=== PATIENT | female | born 1955 | race Caucasian/White ===

== ENCOUNTER 2016-06-26 00:20 | Inpatient (IN) | payer BC ==
[~2016-06-26] VITALS: Ht 152.4 cm; Wt 72.0 kg
[2016-06-26 01:00] VITALS: BP 129/65; RESP 18
[2016-06-26] MEDS ORDERED: morphine 10 MG INJ IV PRN (02:00)
[2016-06-26] MEDS ORDERED: ONDANSETRON 4 MG INJ IV PRN (02:00)
[2016-06-26 05:13] LABS: ADD SCAN DIFF NO
[2016-06-26 05:26] LABS: BASOPHILS % 0.2 % (0.0-2.0); EOSINOPHILS % 0.2 % (0.0-7.0); HEMATOCRIT 41.9 % (37.0-47.0); HEMOGLOBIN 13.8 g/dl (12.0-16.0); LYMPHOCYTES # 1.7 10^3/ul (0.8-2.9); LYMPHOCYTES % 17.4 % (15.0-51.0); MEAN CORPUSCULAR HEMOGLOBIN 30.6 pg (29.0-33.0); MEAN CORPUSCULAR HGB CONC 32.9 g/dl (32.0-37.0); MEAN CORPUSCULAR VOLUME 92.9 fl (82.0-101.0); MEAN PLATELET VOLUME 10.3 fl (7.4-10.4); MONOCYTE # 0.6 10^3/ul (0.3-0.9); MONOCYTES % 5.8 % (0.0-11.0); NEUTROPHIL # 7.5 10^3/ul (1.6-7.5); NEUTROPHILS % 76.2 % (39.0-77.0); PLATELET COUNT 214 10^3/UL (140-415); RED BLOOD COUNT 4.51 10^6/ul (4.20-5.40); RED CELL DISTRIBUTION WIDTH 13.2 % (11.5-14.5); WHITE BLOOD COUNT 9.9 10^3/ul (4.8-10.8)
[2016-06-26] MEDS: morphine 2 MG INJ IV PRN ×4 (06:49→21:54)
[2016-06-26 07:38] LABS: POTASSIUM 4.8 mmol/L (3.5-5.1)
[2016-06-26 07:41] LABS: CALCIUM 9.1 mg/dl (8.4-10.2); CREATININE 0.77 mg/dl (0.44-1.00)
[2016-06-26 08:04] VITALS: BP 113/55; RESP 18
[2016-06-26] MEDS ORDERED: ZOC20 PO (12:24)
[2016-06-26] MEDS ORDERED: CHOL400T10 PO (12:24)
[2016-06-26] MEDS ORDERED: LEVO50TA74 PO (12:24)
[2016-06-26] MEDS ORDERED: ALPR0.5T10 PO (12:24)
[2016-06-26] MEDS ORDERED: CALC-277 PO (12:24)
[2016-06-26] MEDS ORDERED: CYCL-319 PO (12:24)
[2016-06-26] MEDS ORDERED: FLUO20CA22 PO (12:24)
[2016-06-26] MEDS ORDERED: DIPH25CA6 PO (12:24)
[2016-06-26] MEDS ORDERED: NAPR275T83 PO (12:24)
--- NOTE | 2016-06-26 13:52 | HP ---
DATE OF ADMISSION: 06/26/2016 CHIEF COMPLAINT: Status post mechanical fall and right hip pain. HISTORY OF PRESENT ILLNESS: The patient is a 60-year-old Syriac female with past medical history positive for hypothyroidism, depression, hyperlipidemia, chronic low back pain. The patient misstep ped on the stairs yesterday and sustained mechanical fall last night and landed on her hip. The pat ye denies any head injury, denies any loss of consciousness. Denies any vomiting or nausea. Grabiel es any chest pain. Denies shortness of breath. Denies any abdominal pain. The patient was brought by paramedics to [facility]. The patient underwent x-ray of the right hip whic h revealed a right hip fracture and patient was transferred to [facility] for higher level of care. The pa dimas complains of right hip pain with movement, currently is pain free at rest. The patient receiv ed morphine. PAST MEDICAL HISTORY: Per HPI. PAST SURGICAL HISTORY: The patient denies having any past surgeries in the back. SOCIAL HISTORY: The patient smokes occasionally. She cut down on smoking a couple of years ago. T he patient drinks alcohol occasionally only during social events. The patient denies any illicit dr ug use. PRIMARY CARE PHYSICIAN: The patient's primary care physician is Dr. Selvin Alanis in [place]. T he patient stated that she has been compliant with her medications and care. FAMILY HISTORY: Noncontributory. ALLERGIES: THE PATIENT IS ALLERGIC TO ASPIRIN. HOME MEDICATIONS: Include: 1. Levothyroxine. 2. Vitamin D. 3. Alprazolam. 4. Simvastatin. 4. Benadryl p.r.n. 5. Fluoxetine. 6. Naproxen. 7. Cyclobenzaprine, 8. Oyster shell calcium. REVIEW OF SYSTEMS: A 12-point review of systems is negative unless what mentioned in the HPI. PHYSICAL ASSESSMENT: GENERAL: Well-developed, obese female, currently is awake, alert. VITAL SIGNS: Temperature is 98.2, pulse is 80, blood pressure is 113/55, respiratory rate 18, oxyge n saturation is 97% on room air. HEENT: Head is atraumatic, normocephalic. Pupils equal, round, reactive to light and accommodation . Oral mucosa is pink and moist. NECK: Supple, no cervical lymphadenopathy, no thyromegaly. CHEST: Lungs clear bilaterally. There is no rhonchi, wheezes, rales noted. CARDIOVASCULAR: Normal S1, S2. No murmurs, gallops, clicks, rubs noted. Regular rhythm and rate. ABDOMEN: Protuberant, soft, nondistended, nontender. Bowel sounds present. There is no guarding o r rebound tenderness. EXTREMITIES: No edema, clubbing, cyanosis. The patient has right extremity tenderness and right le g shortening. SKIN: There is no rash, petechiae noted. NEUROLOGIC: The patient is awake, alert and oriented x3. No focal deficits noted. Motor strength of upper extremities 5/5, left lower extremity is 5/5, right lower extremity cannot assess due to pa in with movement. LABORATORY DATA: On admission, CBC: White blood cells 9.9, hemoglobin 15.8, hematocrit 41.9, plate lets 214. Chemistry: Sodium is 141, potassium 4.8, chloride 103, carbon dioxide 25, anion gap 18, BUN is 20, creatinine 0.77, glucose 135, calcium is 9.1. ASSESSMENT AND PLAN: 1. Right hip fracture. We are going to ask Dr. Marti to see patient in orthopedic surgery consultati on. Continue morphine for pain control and Zofran for nausea. 2. Hypothyroidism. We will continue levothyroxine. 3. Hyperlipidemia. Continue statin. 4. Depression. Continue fluoxetine. 5. Obesity. 6. Chronic low back pain. We are going to obtain cardiology clearance for possible orthopedic surgery. Dr. Weir will be fo llowing patient's cardiology consultation. We will continue Lovenox for deep venous thrombosis prop hylaxis and Pepcid for peptic ulcer disease prophylaxis. Further recommendations based on clinical course. Plan of care discussed with Dr. Vargas. Dictated By: ILYA MIMS BILL SORTER for KELLEY VARGAS MD SR/NTS Conf#: [id number] DID#: [id number]
[2016-06-26] MEDS: FAMOTIDINE 20 MG TAB PO SCH (14:16)
[2016-06-26] MEDS: ENOXAPARIN 30 MG/0.3 ML SYG SC SCH (14:21)
[2016-06-26] MEDS ORDERED: ACETAMINOPHEN 325 MG TAB PO PRN (15:00)
[2016-06-26] MEDS: DEXTROSE 5%-0.45% NACL 1,000 ML IV SCH (15:50)
--- NOTE | 2016-06-26 17:27 | CONS ---
DATE OF ADMISSION: 06/26/2016 DATE OF CONSULTATION: 06/26/2016 TYPE OF CONSULTATION: Orthopedic surgical consultation HISTORY OF PRESENT ILLNESS: The patient is a 60-year-old female who was transferred in from [facility] on 06/25/2016 because of the insurance arrangement. She obviously had a bertram und-level fall when she missed a step on the stairs. She fell down landing on her right hip, develo ping pain and limit of motion involving her right hip. She was not able to stand up or walk because of the pain and she was taken to the emergency room of the [facility]. PAST MEDICAL HISTORY: She is known to have multiple medical problems including history of herniated lumbar disk, hypothyroidism, depression. PHYSICAL EXAMINATION: GENERAL: My examination revealed a 60-year-old female who was not in any acute distress at this [facility]. EXTREMITIES: There is painful swelling and limit of motion involving her right hip. She was holdin g her right hip in a slightly flexed and externally rotated position. Range of motion of the right hip was not aggressively tested because of the obvious pain. There were no signs of acute neurovasc ular compromise involving the right lower extremity. IMAGING: X-rays of the pelvis and right hip revealed the presence of basal neck fracture of the rig ht hip. DIAGNOSTIC IMPRESSION: Basal neck fracture of the right hip. TREATMENT PLAN: To carry out hemiarthroplasty of the right hip as soon as she can be medically julieth red for surgery. Dictated By: VAISHNAVI EUGENE/SHAWN Conf#: [id number] DID#: [id number]
--- NOTE | 2016-06-26 17:56 | RADRPT ---
PROCEDURE: XR Chest. CLINICAL INDICATION: Hip fracture. Preoperative. TECHNIQUE: Single frontal view. COMPARISON: None. FINDINGS: There is mild atelectasis at the lung bases. The lungs are otherwise clear. The heart size is normal. There is no pleural effusion. There is no pneumothorax. IMPRESSION: 1. Mild atelectasis at the lung bases. 2. Otherwise normal chest radiograph. RPTAT: QQ .Lars Sims MD, MD Date Time Electronically viewed and signed by .Lars Sims MD, MD on 06/26/2016 17:56 .R/
[2016-06-26] MEDS: HYDROCODONE/APAP (5/325) TAB PO PRN (19:48)
[2016-06-26 19:55] VITALS: BP 138/72; RESP 19
[2016-06-27] MEDS: DEXTROSE 5%-0.45% NACL 1,000 ML IV SCH ×2 (04:34→16:58)
[2016-06-27] MEDS: HYDROCODONE/APAP (5/325) TAB PO PRN ×3 (05:47→23:56)
[2016-06-27] MEDS: LEVOTHYROXINE 50 MCG TAB PO SCH (05:47)
[2016-06-27 05:52] LABS: ADD SCAN DIFF NO
[2016-06-27 06:10] LABS: BASOPHILS % 0.4 % (0.0-2.0); EOSINOPHILS # 0.1 10^3/ul (0.0-0.5); EOSINOPHILS % 1.8 % (0.0-7.0); HEMATOCRIT 40.1 % (37.0-47.0); HEMOGLOBIN 13.4 g/dl (12.0-16.0); LYMPHOCYTES # 2.7 10^3/ul (0.8-2.9); LYMPHOCYTES % 34.7 % (15.0-51.0); MEAN CORPUSCULAR HEMOGLOBIN 31.1 pg (29.0-33.0); MEAN CORPUSCULAR HGB CONC 33.4 g/dl (32.0-37.0); MEAN PLATELET VOLUME 10.5 fl (7.4-10.4); MONOCYTE # 0.6 10^3/ul (0.3-0.9); MONOCYTES % 7.1 % (0.0-11.0); NEUTROPHIL # 4.3 10^3/ul (1.6-7.5); NEUTROPHILS % 55.7 % (39.0-77.0); PLATELET COUNT 183 10^3/UL (140-415); RED BLOOD COUNT 4.31 10^6/ul (4.20-5.40); RED CELL DISTRIBUTION WIDTH 13.1 % (11.5-14.5); WHITE BLOOD COUNT 7.8 10^3/ul (4.8-10.8)
[2016-06-27 06:16] LABS: INR 1.11; PROTIME 14.3 Sec (12.2-14.2); PT RATIO 1.1
[2016-06-27 06:17] LABS: PARTIAL THROMBOPLASTIN TIME 34.3 Sec (25.0-35.0)
[2016-06-27 06:22] LABS: POTASSIUM 3.8 mmol/L (3.5-5.1)
[2016-06-27 06:25] LABS: CALCIUM 8.2 mg/dl (8.4-10.2); CREATININE 0.7 mg/dl (0.44-1.00)
[2016-06-27 08:19] VITALS: BP 115/60; RESP 20
[2016-06-27] MEDS: ENOXAPARIN 30 MG/0.3 ML SYG SC SCH ×2 (09:00→17:07)
[2016-06-27] MEDS: FAMOTIDINE 20 MG TAB PO SCH (09:04)
--- NOTE | 2016-06-27 13:48 | RADRPT ---
Echocardiogram Report Patient Name: JULIO CARVAJAL Gender: Female Date: 1955 Study Date: 27-Jun-2016 Pathology Technician: January White RDCS Location: [id number] Ref. Physician: ILYA MIMS Quality: Technically Difficult Study Procedures: Transthoracic echocardiogram with complete 2D, M-Mode, and doppler examination. Indications: Evaluate Left Ventricular function. 2D/M Mode Doppler Measurement Value Normal Ranges Measurement Value Normal Ranges LVIDd 2D 4.4 3.5 - 5.6 cm AV Peak Jose Cruz 1.2 m/sec LVIDs 2D 3.0 2.1 - 4.1 cm AV Peak PG 5.4 mmHg LVPWd 2D 0.9 0.6 - 1.1 cm LVOT Peak Jose Cruz 0.9 m/sec IVSd 2D 0.9 0.6 - 1.1 cm LVOT Peak PG 3.6 mmHg AoR Diam 2D 2.7 2.0 - 3.7 cm MV E Peak Jose Cruz 0.6 m/sec EDV 2D 89.4 cm3 MV A Peak Jose Cruz 0.6 m/sec ESV 2D 26.9 cm3 MV E/A 0.9 LA Dimen 2D 3.3 2.3 - 4.0 cm MV Decel Time 180 msec MV Decel [place] 3 MV E/A 0.9 TR Peak Jose Cruz 2.4 m/sec TR Peak PG 23.5 mmHg RVSP 26.0 mmHg Findings Left Ventricle: Normal left ventricular systolic function. Normal left ventricular cavity size. Normal left ventricular wall thickness. Ejection fraction is visually estimated at 60 %. Tissue Doppler/Mitral Doppler indices are consistent with impaired relaxation (Stage I diastolic dysfunction). Right Ventricle: Normal right ventricular size. Normal right ventricular systolic function. Left Atrium: The left atrium is normal in size. Right Atrium: The right atrium is normal in size. Mitral Valve: Normal appearance and function of the mitral valve with trace physiologic regurgitation. Aortic Valve: Normal appearance of the aortic valve. No significant aortic stenosis or insufficiency. Tricuspid Valve: Normal appearance and function of the tricuspid valve with trace physiologic regurgitation. Estimated peak PA systolic pressure 26 mmHg. Pulmonic Valve: Normal pulmonic valve appearance. Pericardium: Normal pericardium with no significant pericardial effusion. Aorta: Normal aortic root. IVC: Normal size and normal respiratory collapse consistent with normal right atrial pressure. Conclusions Normal left ventricular systolic function. Normal left ventricular cavity size. Normal left ventricular wall thickness. Ejection fraction is visually estimated at 60 %. Tissue Doppler/Mitral Doppler indices are consistent with impaired relaxation (Stage I diastolic dysfunction). Normal right ventricular size. Normal right ventricular systolic function. The left atrium is normal in size. The right atrium is normal in size. No significant valvular stenosis or regurgitation seen. Normal pericardium with no significant pericardial effusion. Electronically Signed By: Gerald Weir 27-Jun-2016 13:48:19 -0700 Patient Name: JULIO CARVAJAL Study Date: 27-Jun-2016 [id number]
--- NOTE | 2016-06-27 14:59 | RADRPT ---
Vent Rate: 82 bpm RR Interval: 0 msec TX Interval: 110 msec QRS Duration: 90 msec QT Interval: 344 msec QTC Interval: 401 msec P-R-T [place]: 38 - 33 - 42 degrees Sinus rhythm with short TX Non specific T wave abnormality Abnormal ECG Electronically Signed By: Gerald Weir [id number]
--- NOTE | 2016-06-27 15:36 | CONS ---
Date/Time of Note Date/Time of Note DATE: 06/27/16 TIME: 15:33 Assessment/Plan Assessment/Plan Additional Assessment/Plan Mechanical fall with hip fracture Preserved ejection fraction Dyslipidemia Thyroid dysfunction -Patient with good exercise capacity, denies exertional chest pain or shortness of breath or at rest. Echocardiogram with preserved ejection fraction. Given her risk factors, patient at an intermediate risk for any untoward cardiac events for her orthopedic surgery. The benefits likely outweigh the risks. Consultation Date/Type/Reason Admit Date/Time Jun 26, 2016 at 00:20 Type of Consultation: cv Reason for Consultation Preoperative cardiac risk stratification Hx of Present Illness This is a 60-year-old female with past medical history of thyroid disease, dyslipidemia who presents after mechanical fall with a hip fracture. Patient denied loss of consciousness, chest pain, palpitations, shortness of breath, syncope or near syncope. Patient undergoing evaluation for possible surgery. Patient denies exertional chest pain or shortness of breath. Is able to climb at least 2 flights of stairs and denies any chest pain but does get tired. She denies exertional shortness of breath or chest pain with activity. She thinks she had a cardiac catheterization over 20 years ago but not sure. Otherwise denies any other complaints. 12 point review of systems was performed with all pertinent positives and negatives mentioned above and all else is negative Past Medical History Thyroid disease Medical History: high cholesterol Past Surgical History Past Surgical Hx: no surgical history Family History Significant Family History: no pertinent family hx Social History Alcohol Use: none Smoking Status: Former smoker Other Social History Lives at home Exam/Review of Systems Vital Signs Vitals Vital Signs Date Time Temp Pulse Resp B/P Pulse Ox O2 Delivery O2 Flow Rate FiO2 06/27/16 08:19 98.6 86 20 115/60 95 06/27/16 08:00 Nasal Cannula 2.0 Intake and Output 06/26/16 06/26/16 06/27/16 15:00 23:00 07:00 Intake Total 1345 ml 1501 ml Output Total 1500 ml Balance 1345 ml 1 ml Exam No apparent distress Constitutional: alert, obese, oriented Head: normocephalic Neck: supple Respiratory: other (Coarse breath sounds bilaterally, no wheezing) Cardiovascular: other (S1-S2 heard, no murmurs appreciated), regular rate and rhythm Gastrointestinal: bowel sounds, non-tender, other (No guarding), soft Extremities: other (No edema or cyanosis) Results Result Diagram: 06/27/16 0500 06/27/16 0500 Results 24 hrs Laboratory Tests Test 06/27/16 05:00 06/27/16 05:40 White Blood Count 7.8 # Red Blood Count 4.31 Hemoglobin 13.4 Hematocrit 40.1 Mean Corpuscular Volume 93.0 Mean Corpuscular Hemoglobin 31.1 Mean Corpuscular Hemoglobin Concent 33.4 Red Cell Distribution Width 13.1 Platelet Count 183 Mean Platelet Volume 10.5 H Neutrophils % 55.7 Lymphocytes % 34.7 Monocytes % 7.1 Eosinophils % 1.8 Basophils % 0.4 Nucleated Red Blood Cells % 0.0 Neutrophils # 4.3 Lymphocytes # 2.7 Monocytes # 0.6 Eosinophils # 0.1 Basophils # 0.0 Nucleated Red Blood Cells # 0.0 Sodium Level 138 Potassium Level 3.8 Chloride Level 105 Carbon Dioxide Level 23 Anion Gap 14 Blood Urea Nitrogen 12 Creatinine 0.70 Glucose Level 141 Calcium Level 8.2 L Prothrombin Time 14.3 H Prothrombin Time Ratio 1.1 INR International Normalized Ratio 1.11 Activated Partial Thromboplast Time 34.3 Medications Medications Current Medications Ondansetron HCl (Zofran Inj) 4 mg Q6H PRN IV NAUSEA AND/OR VOMITING; Start at 02:00 Morphine Sulfate (morphine) 2 mg Q4H PRN IV PAIN Last administered on 21:54; Admin Dose 2 MG; Start 06/26/16 at 02:00 Levothyroxine Sodium (Synthroid) 50 mcg DAILY@06 PO Last administered on 05:47; Admin Dose 50 MCG; Start 06/27/16 at 06:00 Enoxaparin Sodium (Lovenox) 30 mg DAILY SC Last administered on 06/26/16 14:21 ; Admin Dose 30 MG; Start 06/26/16 at 12:30 Famotidine (Pepcid) 20 mg DAILY PO Last administered on 06/27/16 09:04; Admin Dose 20 MG; Start 06/26/16 at 12:30 Acetaminophen (Tylenol Tab) 650 mg Q4H PRN PO PAIN AND OR ELEVATED TEMP; Start 06/26/16 at 15:00 Acetaminophen/ Hydrocodone Bitart 1 tab 1 tab Q4H PRN PO PAIN LEVEL 4-6 Last administered on 06/27/16 05:47; Admin Dose 1 TAB; Start 06/26/16 at 15:00 Dextrose/Sodium Chloride (D5-1/2ns) 1,000 ml @ 75 mls/hr [id number] IV Last administered on 06/27/16 04:34; Admin Dose 75 MLS/HR; Start 06/26/16 at 15:00 Procedures Procedures Sinus rhythm, nonspecific T-wave abnormalities Gerald Weir DO Jun 27, 2016 15:36
[2016-06-27] MEDS: morphine 2 MG INJ IV PRN (16:58)
--- NOTE | 2016-06-27 18:28 | PN ---
Date/Time of Note Date/Time of Note DATE: 06/27/16 TIME: 18:21 Assessment/Plan VTE Prophylaxis VTE Prophylaxis Intervention: SCD's Lines/Catheters IV Catheter Type (from Nrsg): Peripheral IV Central line still needed: Yes Urinary Cath still in place: Yes Reason Cath still needed: urinary retention Assessment/Plan Chief Complaint/Hosp Course ASSESSMENT AND PLAN: 1. Right hip fracture. Dr. Marti is following in orthopedic surgery consultation. Plan is for hemiarthroplasty of the right hip upon cardiology and medical clearance. Continue morphine for pain control and Zofran for nausea. Patient is cleared for surgery by cardiology Dr. Weir. Cleared for surgery from internal medicine standpoint. 2. Hypothyroidism. Continue levothyroxine. 3. Hyperlipidemia. Continue statin. 4. Depression. Continue fluoxetine. 5. Obesity. 6. Chronic low back pain. 7. Stage I diastolic dysfunction congestive heart failure with preserved ejection fraction. Dr. Jensen spoke with patient and patient son and [id number] at the bedside, patient's condition and plan of care is discussed in details, all questions answered. We are going to obtain cardiology clearance for possible orthopedic surgery. Dr. Weir will be following patient's cardiology consultation. We will continue Lovenox for deep venous thrombosis prophylaxis and Pepcid for peptic ulcer disease prophylaxis. Further recommendations based on clinical course. Plan of care discussed with Dr. Jensen. Problems: Subjective 24 Hr Interval Summary Free Text/Dictation Pain is well controlled, stable vital signs, patient denies any nausea vomiting. Exam/Review of Systems Vital Signs Vitals Vital Signs Date Time Temp Pulse Resp B/P Pulse Ox O2 Delivery O2 Flow Rate FiO2 06/27/16 08:19 98.6 86 20 115/60 95 06/27/16 08:00 Nasal Cannula 2.0 Intake and Output 06/26/16 06/26/16 06/27/16 15:00 23:00 07:00 Intake Total 1345 ml 1501 ml Output Total 1500 ml Balance 1345 ml 1 ml Exam PHYSICAL ASSESSMENT: GENERAL: Well-developed, obese female, currently is awake, alert. HEENT: Head is atraumatic, normocephalic. PERRLA. NECK: Supple, no cervical lymphadenopathy, no thyromegaly. CHEST: Lungs clear bilaterally. There is no rhonchi, wheezes, rales noted. CARDIOVASCULAR: Normal S1, S2. No murmurs, gallops, clicks, rubs noted. Regular rhythm and rate. ABDOMEN: Protuberant, soft, nondistended, nontender. Bowel sounds present. There is no guarding or rebound tenderness. EXTREMITIES: No edema, clubbing, cyanosis. The patient has right extremity tenderness and right leg shortening. SKIN: There is no rash, petechiae noted. NEUROLOGIC: The patient is awake, alert and oriented x3. Results Result Diagram: 06/27/16 0500 06/27/16 0500 Results 24 hrs Laboratory Tests Test 06/27/16 05:00 06/27/16 05:40 White Blood Count 7.8 # Red Blood Count 4.31 Hemoglobin 13.4 Hematocrit 40.1 Mean Corpuscular Volume 93.0 Mean Corpuscular Hemoglobin 31.1 Mean Corpuscular Hemoglobin Concent 33.4 Red Cell Distribution Width 13.1 Platelet Count 183 Mean Platelet Volume 10.5 H Neutrophils % 55.7 Lymphocytes % 34.7 Monocytes % 7.1 Eosinophils % 1.8 Basophils % 0.4 Nucleated Red Blood Cells % 0.0 Neutrophils # 4.3 Lymphocytes # 2.7 Monocytes # 0.6 Eosinophils # 0.1 Basophils # 0.0 Nucleated Red Blood Cells # 0.0 Sodium Level 138 Potassium Level 3.8 Chloride Level 105 Carbon Dioxide Level 23 Anion Gap 14 Blood Urea Nitrogen 12 Creatinine 0.70 Glucose Level 141 Calcium Level 8.2 L Prothrombin Time 14.3 H Prothrombin Time Ratio 1.1 INR International Normalized Ratio 1.11 Activated Partial Thromboplast Time 34.3 Medications Medications Current Medications Ondansetron HCl (Zofran Inj) 4 mg Q6H PRN IV NAUSEA AND/OR VOMITING; Start at 02:00 Morphine Sulfate (morphine) 2 mg Q4H PRN IV PAIN Last administered on 16:58; Admin Dose 2 MG; Start 06/26/16 at 02:00 Levothyroxine Sodium (Synthroid) 50 mcg DAILY@06 PO Last administered on 05:47; Admin Dose 50 MCG; Start 06/27/16 at 06:00 Enoxaparin Sodium (Lovenox) 30 mg DAILY SC Last administered on 06/27/16 17:07 ; Admin Dose 30 MG; Start 06/26/16 at 12:30 Famotidine (Pepcid) 20 mg DAILY PO Last administered on 06/27/16 09:04; Admin Dose 20 MG; Start 06/26/16 at 12:30 Acetaminophen (Tylenol Tab) 650 mg Q4H PRN PO PAIN AND OR ELEVATED TEMP; Start 06/26/16 at 15:00 Acetaminophen/ Hydrocodone Bitart 1 tab 1 tab Q4H PRN PO PAIN LEVEL 4-6 Last administered on 06/27/16 05:47; Admin Dose 1 TAB; Start 06/26/16 at 15:00 Dextrose/Sodium Chloride (D5-1/2ns) 1,000 ml @ 75 mls/hr [id number] IV Last administered on 06/27/16 16:58; Admin Dose 75 MLS/HR; Start 06/26/16 at 15:00 ILYA MIMS Jun 27, 2016 18:28
[2016-06-27 19:19] VITALS: BP 125/63; RESP 19
[2016-06-28] VITALS (18 sets, daily range): BP systolic 112–151; BP diastolic 55–74; PULSE 80–108; RESP 12–20
[2016-06-28 05:45] LABS: ADD SCAN DIFF NO
[2016-06-28 05:57] LABS: BASOPHILS % 0.3 % (0.0-2.0); EOSINOPHILS # 0.2 10^3/ul (0.0-0.5); EOSINOPHILS % 2.8 % (0.0-7.0); HEMATOCRIT 40.9 % (37.0-47.0); HEMOGLOBIN 13.3 g/dl (12.0-16.0); LYMPHOCYTES # 3.2 10^3/ul (0.8-2.9); LYMPHOCYTES % 41.5 % (15.0-51.0); MEAN CORPUSCULAR HEMOGLOBIN 30.5 pg (29.0-33.0); MEAN CORPUSCULAR HGB CONC 32.5 g/dl (32.0-37.0); MEAN CORPUSCULAR VOLUME 93.8 fl (82.0-101.0); MEAN PLATELET VOLUME 10.4 fl (7.4-10.4); MONOCYTE # 0.6 10^3/ul (0.3-0.9); MONOCYTES % 7.6 % (0.0-11.0); NEUTROPHIL # 3.7 10^3/ul (1.6-7.5); NEUTROPHILS % 47.5 % (39.0-77.0); PLATELET COUNT 187 10^3/UL (140-415); RED BLOOD COUNT 4.36 10^6/ul (4.20-5.40); RED CELL DISTRIBUTION WIDTH 12.8 % (11.5-14.5); WHITE BLOOD COUNT 7.8 10^3/ul (4.8-10.8)
[2016-06-28] MEDS: LEVOTHYROXINE 50 MCG TAB PO SCH (06:00)
[2016-06-28 06:09] LABS: POTASSIUM 4.2 mmol/L (3.5-5.1)
[2016-06-28 06:11] LABS: CREATININE 0.7 mg/dl (0.44-1.00)
[2016-06-28 06:12] LABS: CALCIUM 8.1 mg/dl (8.4-10.2)
[2016-06-28] MEDS: DEXTROSE 5%-0.45% NACL 1,000 ML IV SCH ×2 (06:25→18:34)
[2016-06-28] MEDS: FAMOTIDINE 20 MG TAB PO SCH (09:00)
[2016-06-28] MEDS: ENOXAPARIN 30 MG/0.3 ML SYG SC SCH (09:00)
[2016-06-28] MEDS: morphine 2 MG INJ IV PRN (09:12)
[2016-06-28] MEDS ORDERED: POLYMYXIN/BACITRACIN 1L IRRIG ONE (12:52)
[2016-06-28] MEDS ORDERED: GLYCOPYRROLATE 0.4 MG INJ ONE ×2 (13:29→15:04)
[2016-06-28] MEDS ORDERED: ROCURONIUM 50 MG INJ ONE ×2 (13:29→15:36)
[2016-06-28] MEDS ORDERED: SUCCINYLCHOLINE CHLORIDE 100 MG/5 ML SYG IV ONE (13:29)
[2016-06-28] MEDS ORDERED: LIDOCAINE 2% (SDV) 5 ML INJ ONE (13:29)
[2016-06-28] MEDS ORDERED: PROPOFOL 20 ML ONE (13:29)
[2016-06-28] MEDS ORDERED: MEPERIDINE 100 MG INJ ONE (13:29)
[2016-06-28] MEDS ORDERED: NEOSTIGMINE 3 MG/3 ML SYRINGE ONE ×2 (13:29→15:04)
--- NOTE | 2016-06-28 13:47 | HPN ---
Date/Time of Note Date/Time of Note DATE: 06/28/16 TIME: 13:46 Interval H&P Admission Note Pt. seen H&P reviewed: No system changes EDWINA VERDUGO MD Jun 28, 2016 13:47
[2016-06-28] MEDS ORDERED: CEFAZOLIN 1 GM INJ ONE (14:04)
[2016-06-28] MEDS ORDERED: hydrALAzine 20 MG INJ IV PRN (14:30)
[2016-06-28] MEDS ORDERED: DIPHENHYDRAMINE 50 MG INJ IV PRN (14:30)
[2016-06-28] MEDS ORDERED: MEPERIDINE 25 MG INJ IV PRN (14:30)
[2016-06-28] MEDS ORDERED: ONDANSETRON 4 MG INJ IV PRN (14:30)
[2016-06-28] MEDS ORDERED: METOCLOPRAMIDE 10 MG INJ IV PRN (14:30)
[2016-06-28] MEDS ORDERED: morphine (1 MG/ML) 10ML SYRINGE IV PRN ×2 (14:30)
[2016-06-28] MEDS ORDERED: FENTAnyl 50 MCG/ML VIAL IV PRN ×2 (14:30)
[2016-06-28] MEDS ORDERED: MIDAZOLAM 1 MG/ML 2 ML INJ IV PRN (14:30)
[2016-06-28] MEDS ORDERED: LABETALOL HCL 20MG INJ IV PRN (14:30)
[2016-06-28] MEDS ORDERED: EPHEDrine SULFATE 50 MG/5 ML SYG IV PRN (14:30)
[2016-06-28] MEDS ORDERED: HYDROmorphONE (0.2 MG/ML) 10ML SYG IV PRN (14:30)
[2016-06-28] MEDS ORDERED: POLYMYXIN/BACITRACIN 1L IRRIG IRR ONE (14:48)
[2016-06-28] MEDS ORDERED: METOCLOPRAMIDE 10 MG INJ ONE (15:04)
[2016-06-28] MEDS ORDERED: ONDANSETRON 4 MG INJ ONE (15:04)
--- NOTE | 2016-06-28 15:44 | PN ---
Date/Time of Note Date/Time of Note DATE: 06/28/16 TIME: 15:43 Assessment/Plan Lines/Catheters IV Catheter Type (from Nrsg): Peripheral IV Urinary Cath still in place: Yes Assessment/Plan Assessment/Plan 1. Right hip fracture. Dr. Marti is following in orthopedic surgery consultation. Plan is for hemiarthroplasty of the right hip upon cardiology and medical clearance. Continue morphine for pain control and Zofran for nausea. Patient is cleared for surgery by cardiology Dr. Weir. Cleared for surgery from internal medicine standpoint. 2. Hypothyroidism. Continue levothyroxine. 3. Hyperlipidemia. Continue statin. 4. Depression. Continue fluoxetine. 5. Obesity. 6. Chronic low back pain. 7. Stage I diastolic dysfunction congestive heart failure with preserved ejection fraction. Dr. Jensen spoke with patient and patient son and [id number] at the bedside, patient's condition and plan of care is discussed in details, all questions answered. We are going to obtain cardiology clearance for possible orthopedic surgery. Dr. Weir will be following patient's cardiology consultation. We will continue Lovenox for deep venous thrombosis prophylaxis and Pepcid for peptic ulcer disease prophylaxis. Further recommendations based on clinical course. Plan of care discussed with Dr. Jensen. Subjective 24 Hr Interval Summary Free Text/Dictation Patient off floor forsurgery. no new issues reported by staff. dw staff Exam/Review of Systems Vital Signs Vitals Vital Signs Date Time Temp Pulse Resp B/P Pulse Ox O2 Delivery O2 Flow Rate FiO2 06/28/16 11:47 98.0 83 18 112/55 97 Nasal Cannula 2.0 Intake and Output 06/27/16 06/27/16 06/28/16 15:00 23:00 07:00 Intake Total 1360 ml 2075 ml Output Total 1400 ml 1150 ml Balance -40 ml 925 ml Results Result Diagram: 06/28/16 0457 06/28/16 0453 Results 24 hrs Laboratory Tests Test 06/28/16 04:53 06/28/16 04:57 Sodium Level 139 Potassium Level 4.2 Chloride Level 105 Carbon Dioxide Level 29 Anion Gap 9 # Blood Urea Nitrogen 9 Creatinine 0.70 Glucose Level 126 Calcium Level 8.1 L White Blood Count 7.8 Red Blood Count 4.36 Hemoglobin 13.3 Hematocrit 40.9 Mean Corpuscular Volume 93.8 Mean Corpuscular Hemoglobin 30.5 Mean Corpuscular Hemoglobin Concent 32.5 Red Cell Distribution Width 12.8 Platelet Count 187 Mean Platelet Volume 10.4 Neutrophils % 47.5 Lymphocytes % 41.5 Monocytes % 7.6 Eosinophils % 2.8 Basophils % 0.3 Nucleated Red Blood Cells % 0.0 Neutrophils # 3.7 Lymphocytes # 3.2 H Monocytes # 0.6 Eosinophils # 0.2 Basophils # 0.0 Nucleated Red Blood Cells # 0.0 Medications Medications Current Medications Ondansetron HCl (Zofran Inj) 4 mg Q6H PRN IV NAUSEA AND/OR VOMITING; Start at 02:00 Morphine Sulfate (morphine) 2 mg Q4H PRN IV PAIN Last administered on 09:12; Admin Dose 2 MG; Start 06/26/16 at 02:00 Levothyroxine Sodium (Synthroid) 50 mcg DAILY@06 PO Last administered on 05:47; Admin Dose 50 MCG; Start 06/27/16 at 06:00 Enoxaparin Sodium (Lovenox) 30 mg DAILY SC Last administered on 06/27/16 17:07 ; Admin Dose 30 MG; Start 06/26/16 at 12:30 Famotidine (Pepcid) 20 mg DAILY PO Last administered on 06/27/16 09:04; Admin Dose 20 MG; Start 06/26/16 at 12:30 Acetaminophen (Tylenol Tab) 650 mg Q4H PRN PO PAIN AND OR ELEVATED TEMP; Start 06/26/16 at 15:00 Acetaminophen/ Hydrocodone Bitart 1 tab 1 tab Q4H PRN PO PAIN LEVEL 4-6 Last administered on 06/27/16 23:56; Admin Dose 1 TAB; Start 06/26/16 at 15:00 Dextrose/Sodium Chloride (D5-1/2ns) 1,000 ml @ 75 mls/hr [id number] IV Last administered on 06/28/16 06:25; Admin Dose 75 MLS/HR; Start 06/26/16 at 15:00 SANGEETHA CLINE Jun 28, 2016 15:44
[2016-06-28] MEDS ORDERED: NACL 0.9% 3 ML SYG IV SCH (16:30)
[2016-06-28] MEDS ORDERED: HYDROCODONE/APAP (5/325) TAB PO PRN (16:30)
[2016-06-28] MEDS ORDERED: HYDROmorphONE (0.2 MG/ML) 10ML SYG IV ONE (16:49)
[2016-06-28 16:51] LABS: HEMATOCRIT 38.8 % (37.0-47.0); HEMOGLOBIN 12.7 g/dl (12.0-16.0)
[2016-06-28] MEDS: HYDROmorphONE (0.2 MG/ML) 10ML SYG IV PRN ×2 (16:57→17:09)
[2016-06-28 17:08] LABS: POTASSIUM 3.8 mmol/L (3.5-5.1)
[2016-06-28 17:11] LABS: CREATININE 0.75 mg/dl (0.44-1.00)
[2016-06-28 17:12] LABS: CALCIUM 7.7 mg/dl (8.4-10.2)
--- NOTE | 2016-06-28 17:32 | OPR ---
DATE OF OPERATION: 06/28/2016 PREOPERATIVE DIAGNOSIS: Femoral neck fracture of the right hip. POSTOPERATIVE DIAGNOSIS: Femoral neck fracture of the right hip. OPERATION PERFORMED: Hemiarthroplasty of the right hip. SURGEON: Vaishnavi Marti MD BUSINESS LINE MANAGER: BASILIA Becerra ANESTHESIA: General. PROCEDURE AND FINDINGS: Under general anesthesia, the patient was placed on left lateral decubitus position with the right side up. Usual prep and drape was done exposing the right hip and right low er extremity. Right hip was approached through the usual posterolateral oblique incision. After detaching short e xternal rotator and splitting gluteal muscles, the hip joint was entered. Entering the hip joint, t here obviously was a femoral neck fracture which is somewhat low level than usual. The head was rem kevin and the measurements revealed that the size of the head is about 44 to 45 mm in diameter. A tr ial reduction was carried out with the trial bipolar cup and it was noted that the 44 mm cup was pro viding the best fit. After packing the acetabular cavity, attention was then directed to the proxim al femur. Following initial preparation with box osteotome and T-handle reamer, gradual broaching w as carried out using increasing size of broaches. With the size 3 broach, an intraoperative x-ray w as obtained and it was noted that it could be increased. With the size 4 broach in, trial component s were assembled and stability was tested. After a trial, it was my impression that +4 neck in a hi gh-offset setting with the 44 mm bipolar cup was providing the best fit. After removing all the trial components, actual femoral stem and the size 4 in a high-offset setting was pounded in and this was connected to +4 neck, 44 mm bipolar cup. Joint was reduced. The range of motion and the stability were entirely satisfactory. After irrigation and hemostasis, short external rotator was reattached and the capsule was closed. Further closure was carried out using 0 Vicryl for muscle and fascia and 2-0 Vicryl for subcutaneous tissues. Final skin closure was carried out with skin segun. Usual sterile pressure dressings w ere applied. The patient tolerated the entire procedure very well and was sent to the recovery room in good condi tion. Dictated By: VAISHNAVI EUGENE/SHAWN Conf#: [id number] DID#: [id number]
--- NOTE | 2016-06-28 18:00 | RADRPT ---
PROCEDURE: Intraoperative radiograph of the right hip. CLINICAL INDICATION: Right hip pain. Intraoperative. TECHNIQUE: A single frontal view of the right hip was obtained in the operating room with portable radiographic equipment. COMPARISON: No prior study is available for comparison. FINDINGS: The femoral component of the right hip arthroplasty is present. IMPRESSION: 1. Satisfactory intraoperative imaging of the right hip. RPTAT: QQ .Lars Sims MD, MD Date Time Electronically viewed and signed by .Lars Sims MD, MD on 06/28/2016 18:00 .R/
[2016-06-28] MEDS: HYDROmorphONE 1 MG/ML SYG IV PRN ×2 (18:15→21:29)
[2016-06-28] MEDS: CEFAZOLIN 1 GM/50 ML (PMX) 50 ML IVPB SCH (18:34)
--- NOTE | 2016-06-28 18:37 | RADRPT ---
PROCEDURE: XR Pelvis. CLINICAL INDICATION: Pelvic pain. Postop. TECHNIQUE: Single frontal view. COMPARISON: None. FINDINGS: There is a right hip hemiarthroplasty. This appears satisfactory with no fracture, dislocation or l oosening. There are skin segun overlying the right hip. There is no lytic lesion. The left hip is normal. A Mccullough catheter is present in the bladder. IMPRESSION: 1. Satisfactory postoperative appearance of the right hip. RPTAT: QQ .Lars Sims MD, Date Time Electronically viewed and signed by .Lars Sims MD, on 06/28/2016 18:37 .R/
[2016-06-29] VITALS: BP 131/70; RESP 18
[2016-06-29] MEDS: HYDROCODONE/APAP (5/325) TAB PO PRN ×2 (00:34→06:10)
[2016-06-29] MEDS: CEFAZOLIN 1 GM/50 ML (PMX) 50 ML IVPB SCH ×2 (01:30→08:57)
[2016-06-29] MEDS: HYDROmorphONE 1 MG/ML SYG IV PRN ×4 (02:36→18:13)
[2016-06-29] MEDS: DEXTROSE 5%-0.45% NACL 1,000 ML IV SCH ×4 (02:36→20:22)
[2016-06-29 05:10] VITALS: BP 117/62; PULSE 109; RESP 17
[2016-06-29 05:38] LABS: ADD SCAN DIFF NO
[2016-06-29 05:44] LABS: BASOPHILS % 0.2 % (0.0-2.0); EOSINOPHILS % 0.1 % (0.0-7.0); HEMATOCRIT 32.6 % (37.0-47.0); HEMOGLOBIN 10.7 g/dl (12.0-16.0); LYMPHOCYTES # 1.9 10^3/ul (0.8-2.9); LYMPHOCYTES % 15.9 % (15.0-51.0); MEAN CORPUSCULAR HEMOGLOBIN 30.8 pg (29.0-33.0); MEAN CORPUSCULAR HGB CONC 32.8 g/dl (32.0-37.0); MEAN CORPUSCULAR VOLUME 93.9 fl (82.0-101.0); MEAN PLATELET VOLUME 10.4 fl (7.4-10.4); MONOCYTE # 0.9 10^3/ul (0.3-0.9); MONOCYTES % 7.5 % (0.0-11.0); NEUTROPHIL # 8.8 10^3/ul (1.6-7.5); PLATELET COUNT 199 10^3/UL (140-415); RED BLOOD COUNT 3.47 10^6/ul (4.20-5.40); RED CELL DISTRIBUTION WIDTH 12.7 % (11.5-14.5); WHITE BLOOD COUNT 11.6 10^3/ul (4.8-10.8)
[2016-06-29 05:58] LABS: POTASSIUM 3.9 mmol/L (3.5-5.1)
[2016-06-29 06:00] LABS: CREATININE 0.71 mg/dl (0.44-1.00)
[2016-06-29 06:01] LABS: CALCIUM 7.3 mg/dl (8.4-10.2)
[2016-06-29] MEDS: LEVOTHYROXINE 50 MCG TAB PO SCH (06:10)
[2016-06-29 07:27] VITALS: BP 119/61; RESP 20
[2016-06-29] MEDS: FAMOTIDINE 20 MG TAB PO SCH (08:57)
[2016-06-29] MEDS: ENOXAPARIN 40 MG/0.4 ML SYG SC SCH (09:01)
[2016-06-29 14:00] VITALS: BP 116/68; PULSE 82; RESP 18
--- NOTE | 2016-06-29 15:05 | CONS ---
Date/Time of Note Date/Time of Note DATE: 06/29/16 TIME: 15:02 Assessment/Plan Assessment/Plan Additional Assessment/Plan Preoperative cardiac risk stratification Mechanical fall with hip fracture status post surgery Preserved ejection fraction Dyslipidemia Thyroid dysfunction -Status post hip surgery yesterday and doing well. Denies any shortness of breath. Does get occasional tingling sensation in her chest with morphine but otherwise denies exertional chest pain or shortness of breath. Blood pressure has remained stable. No new cardiac orders at the current time Consultation Date/Type/Reason Admit Date/Time Jun 26, 2016 at 00:20 Initial Consult Date Type of Consultation: cv 24 HR Interval Summary Free Text/Dictation Patient denies any shortness of breath, chest pressure. Complaining of leg pain Exam/Review of Systems Vital Signs Vitals Vital Signs Date Time Temp Pulse Resp B/P Pulse Ox O2 Delivery O2 Flow Rate FiO2 06/29/16 07:27 99.2 99 20 119/61 95 06/29/16 05:10 Nasal Cannula 2.0 Intake and Output 06/28/16 06/28/16 06/29/16 15:00 23:00 07:00 Intake Total 2225 ml 50 ml 1850 ml Output Total 200 ml 300 ml 700 ml Balance 2025 ml -250 ml 1150 ml Exam No apparent distress Constitutional: alert, obese, oriented Head: normocephalic Neck: supple Respiratory: other (Coarse breath sounds bilaterally, no wheezing) Cardiovascular: other (S1-S2 heard), regular rate and rhythm Gastrointestinal: bowel sounds, non-tender, other (No guarding), soft Extremities: other (No edema or cyanosis) Results Result Diagram: 06/29/16 0454 06/29/16 0454 Results 24 hrs Laboratory Tests Test 06/28/16 16:45 06/29/16 04:54 Hemoglobin 12.7 10.7 L Hematocrit 38.8 32.6 L Sodium Level 139 135 Potassium Level 3.8 3.9 Chloride Level 106 101 Carbon Dioxide Level 26 25 Anion Gap 11 13 Blood Urea Nitrogen 8 8 Creatinine 0.75 0.71 Glucose Level 141 210 Calcium Level 7.7 L 7.3 L White Blood Count 11.6 #H Red Blood Count 3.47 #L Mean Corpuscular Volume 93.9 Mean Corpuscular Hemoglobin 30.8 Mean Corpuscular Hemoglobin Concent 32.8 Red Cell Distribution Width 12.7 Platelet Count 199 Mean Platelet Volume 10.4 Neutrophils % 76.0 Lymphocytes % 15.9 Monocytes % 7.5 Eosinophils % 0.1 Basophils % 0.2 Nucleated Red Blood Cells % 0.0 Neutrophils # 8.8 H Lymphocytes # 1.9 Monocytes # 0.9 Eosinophils # 0.0 Basophils # 0.0 Nucleated Red Blood Cells # 0.0 Medications Medications Current Medications Ondansetron HCl (Zofran Inj) 4 mg Q6H PRN IV NAUSEA AND/OR VOMITING; Start at 02:00 Levothyroxine Sodium (Synthroid) 50 mcg DAILY@06 PO Last administered on 06:10; Admin Dose 50 MCG; Start 06/27/16 at 06:00 Famotidine (Pepcid) 20 mg DAILY PO Last administered on 06/29/16 08:57; Admin Dose 20 MG; Start 06/26/16 at 12:30 Acetaminophen (Tylenol Tab) 650 mg Q4H PRN PO PAIN AND OR ELEVATED TEMP Last administered on 06/29/16 01:39; Admin Dose 650 MG; Start 06/26/16 at 15:00 Acetaminophen/ Hydrocodone Bitart 1 tab 1 tab Q4H PRN PO PAIN LEVEL 4-6 Last administered on 06/27/16 23:56; Admin Dose 1 TAB; Start 06/26/16 at 15:00 Dextrose/Sodium Chloride (D5-1/2ns) 1,000 ml @ 125 mls/hr Q8H IV Last administered on 06/29/16 12:06; Admin Dose 125 MLS/HR; Start 06/28/16 at 17:00 Acetaminophen/ Hydrocodone Bitart ([place] (5/325)) 1 tab Q4H PRN PO PAIN LEVEL 1 -3; Start 06/28/16 at 16:30 Acetaminophen/ Hydrocodone Bitart ([place] (5/325)) 2 tab Q4H PRN PO PAIN LEVEL 4 -7 Last administered on 06/29/16 06:10; Admin Dose 2 TAB; Start 06/28/16 at 16: 30 Hydromorphone HCl (Dilaudid) 1 mg Q3H PRN IV PAIN LEVEL 8-10 Last administered on 06/29/16 13:05; Admin Dose 1 MG; Start 06/28/16 at 16:30 Enoxaparin Sodium (Lovenox) 40 mg DAILY SC Last administered on 06/29/16t 09:01 ; Admin Dose 40 MG; Start 06/29/16 at 09:00 Gerald Weir DO Jun 29, 2016 15:05
--- NOTE | 2016-06-29 17:15 | PN ---
Date/Time of Note Date/Time of Note DATE: 06/29/16 TIME: 17:11 Assessment/Plan VTE Prophylaxis VTE Prophylaxis Intervention: SCD's Lines/Catheters IV Catheter Type (from Nrs): Peripheral IV Urinary Cath still in place: Yes Reason Cath still needed: urinary retention Assessment/Plan Chief Complaint/Hosp Course ASSESSMENT AND PLAN: 1. Right hip fracture. S/p hemiarthroplasty of the right by Dr Marti on 06/28. Continue continue [place] and Dilaudid as needed for pain. Follow-up surgical recommendation. 2. Hypothyroidism. Continue levothyroxine. 3. Hyperlipidemia. Continue statin. 4. Depression. Continue fluoxetine. 5. Obesity. 6. Chronic low back pain. 7. Stage I diastolic dysfunction congestive heart failure with preserved ejection fraction. Dr. Barker is following and cardiology consultation. Continue Lovenox for deep venous thrombosis prophylaxis and Pepcid for peptic ulcer disease prophylaxis. Further recommendations based on clinical course. Plan of care discussed with Dr. Jensen. Problems: Subjective 24 Hr Interval Summary Free Text/Dictation Patient denies any shortness of breath denies any chest pain, postoperative pain is well controlled. Exam/Review of Systems Vital Signs Vitals Vital Signs Date Time Temp Pulse Resp B/P Pulse Ox O2 Delivery O2 Flow Rate FiO2 06/29/16 07:27 99.2 99 20 119/61 95 06/29/16 05:10 Nasal Cannula 2.0 Intake and Output 06/28/16 06/28/16 06/29/16 15:00 23:00 07:00 Intake Total 2225 ml 50 ml 1850 ml Output Total 200 ml 300 ml 700 ml Balance 2025 ml -250 ml 1150 ml Exam PHYSICAL ASSESSMENT: GENERAL: Well-developed, obese female, currently is awake, alert. HEENT: Head is atraumatic, normocephalic. PERRLA. NECK: Supple, no cervical lymphadenopathy, no thyromegaly. CHEST: Lungs clear bilaterally. There is no rhonchi, wheezes, rales noted. CARDIOVASCULAR: Normal S1, S2. No murmurs, gallops, clicks, rubs noted. Regular rhythm and rate. ABDOMEN: Protuberant, soft, nondistended, nontender. Bowel sounds present. There is no guarding or rebound tenderness. EXTREMITIES: No edema, clubbing, cyanosis. Status post right hip hemiarthroplasty. SKIN: There is no rash, petechiae noted. NEUROLOGIC: The patient is awake, alert and oriented x3. Results Result Diagram: 06/29/16 0454 06/29/16 0454 Results 24 hrs Laboratory Tests Test 06/29/16 04:54 White Blood Count 11.6 #H Red Blood Count 3.47 #L Hemoglobin 10.7 L Hematocrit 32.6 L Mean Corpuscular Volume 93.9 Mean Corpuscular Hemoglobin 30.8 Mean Corpuscular Hemoglobin Concent 32.8 Red Cell Distribution Width 12.7 Platelet Count 199 Mean Platelet Volume 10.4 Neutrophils % 76.0 Lymphocytes % 15.9 Monocytes % 7.5 Eosinophils % 0.1 Basophils % 0.2 Nucleated Red Blood Cells % 0.0 Neutrophils # 8.8 H Lymphocytes # 1.9 Monocytes # 0.9 Eosinophils # 0.0 Basophils # 0.0 Nucleated Red Blood Cells # 0.0 Sodium Level 135 Potassium Level 3.9 Chloride Level 101 Carbon Dioxide Level 25 Anion Gap 13 Blood Urea Nitrogen 8 Creatinine 0.71 Glucose Level 210 Calcium Level 7.3 L Medications Medications Current Medications Ondansetron HCl (Zofran Inj) 4 mg Q6H PRN IV NAUSEA AND/OR VOMITING; Start at 02:00 Levothyroxine Sodium (Synthroid) 50 mcg DAILY@06 PO Last administered on 06:10; Admin Dose 50 MCG; Start 06/27/16 at 06:00 Famotidine (Pepcid) 20 mg DAILY PO Last administered on 06/29/16 08:57; Admin Dose 20 MG; Start 06/26/16 at 12:30 Acetaminophen (Tylenol Tab) 650 mg Q4H PRN PO PAIN AND OR ELEVATED TEMP Last administered on 06/29/16 01:39; Admin Dose 650 MG; Start 06/26/16 at 15:00 Acetaminophen/ Hydrocodone Bitart 1 tab 1 tab Q4H PRN PO PAIN LEVEL 4-6 Last administered on 06/27/16 23:56; Admin Dose 1 TAB; Start 06/26/16 at 15:00 Dextrose/Sodium Chloride (D5-1/2ns) 1,000 ml @ 125 mls/hr Q8H IV Last administered on 06/29/16 12:06; Admin Dose 125 MLS/HR; Start 06/28/16 at 17:00 Acetaminophen/ Hydrocodone Bitart ([place] (5/325)) 1 tab Q4H PRN PO PAIN LEVEL 1 -3; Start 06/28/16 at 16:30 Acetaminophen/ Hydrocodone Bitart ([place] (5/325)) 2 tab Q4H PRN PO PAIN LEVEL 4 -7 Last administered on 06/29/16 06:10; Admin Dose 2 TAB; Start 06/28/16 at 16: 30 Hydromorphone HCl (Dilaudid) 1 mg Q3H PRN IV PAIN LEVEL 8-10 Last administered on 06/29/16 13:05; Admin Dose 1 MG; Start 06/28/16 at 16:30 Enoxaparin Sodium (Lovenox) 40 mg DAILY SC Last administered on 06/29/16 09:01 ; Admin Dose 40 MG; Start 06/29/16 at 09:00 ILYA MIMS Jun 29, 2016 17:15
[2016-06-29 19:00] VITALS: BP 128/62; RESP 20
[2016-06-30] MEDS: HYDROCODONE/APAP (5/325) TAB PO PRN ×5 (00:19→22:05)
[2016-06-30] MEDS: DEXTROSE 5%-0.45% NACL 1,000 ML IV SCH ×4 (01:00→16:29)
[2016-06-30 05:11] LABS: ADD SCAN DIFF NO
[2016-06-30 05:28] LABS: BASOPHILS % 0.2 % (0.0-2.0); EOSINOPHILS % 0.3 % (0.0-7.0); HEMATOCRIT 26.8 % (37.0-47.0); HEMOGLOBIN 9.2 g/dl (12.0-16.0); LYMPHOCYTES # 2.1 10^3/ul (0.8-2.9); LYMPHOCYTES % 18.2 % (15.0-51.0); MEAN CORPUSCULAR HEMOGLOBIN 31.4 pg (29.0-33.0); MEAN CORPUSCULAR HGB CONC 34.3 g/dl (32.0-37.0); MEAN CORPUSCULAR VOLUME 91.5 fl (82.0-101.0); MEAN PLATELET VOLUME 10.5 fl (7.4-10.4); MONOCYTE # 0.9 10^3/ul (0.3-0.9); MONOCYTES % 7.7 % (0.0-11.0); NEUTROPHIL # 8.4 10^3/ul (1.6-7.5); NEUTROPHILS % 73.1 % (39.0-77.0); PLATELET COUNT 176 10^3/UL (140-415); RED BLOOD COUNT 2.93 10^6/ul (4.20-5.40); RED CELL DISTRIBUTION WIDTH 12.4 % (11.5-14.5); WHITE BLOOD COUNT 11.5 10^3/ul (4.8-10.8)
[2016-06-30 05:34] LABS: POTASSIUM 3.6 mmol/L (3.5-5.1)
[2016-06-30 05:37] LABS: CALCIUM 7.3 mg/dl (8.4-10.2); CREATININE 0.63 mg/dl (0.44-1.00)
[2016-06-30] MEDS: LEVOTHYROXINE 50 MCG TAB PO SCH (05:51)
[2016-06-30 07:52] VITALS: BP 110/60; RESP 15
[2016-06-30] MEDS: FAMOTIDINE 20 MG TAB PO SCH (09:14)
[2016-06-30] MEDS: ENOXAPARIN 40 MG/0.4 ML SYG SC SCH (09:19)
--- NOTE | 2016-06-30 12:35 | PN ---
Date/Time of Note Date/Time of Note DATE: 06/30/16 TIME: 12:35 Assessment/Plan VTE Prophylaxis VTE Prophylaxis Intervention: other Lines/Catheters IV Catheter Type (from Nrsg): Peripheral IV Urinary Cath still in place: Yes Reason Cath still needed: skin wounds contaminated by urine Assessment/Plan Chief Complaint/Hosp Course 1. Right hip fracture. S/p hemiarthroplasty of the right by Dr Marti on 06/28. Continue continue [place] and Dilaudid as needed for pain. Follow-up surgical recommendation. 2. Hypothyroidism. Continue levothyroxine. 3. Hyperlipidemia. Continue statin. 4. Depression. Continue fluoxetine. 5. Obesity. 6. Chronic low back pain. 7. Stage I diastolic dysfunction congestive heart failure with preserved ejection fraction. Dr. Barker is following and cardiology consultation. Problems: Subjective 24 Hr Interval Summary Free Text/Dictation Patient has no complaints Exam/Review of Systems Vital Signs Vitals Vital Signs Date Time Temp Pulse Resp B/P Pulse Ox O2 Delivery O2 Flow Rate FiO2 06/30/16 07:52 98.1 106 15 110/60 96 06/29/16 14:00 Room Air 06/29/16 05:10 2.0 Intake and Output 06/29/16 06/29/16 06/30/16 15:00 23:00 07:00 Intake Total 600 ml 1750 ml 1542 ml Output Total 640 ml 2200 ml Balance 600 ml 1110 ml -658 ml Exam Constitutional: obese, well developed Head: atraumatic, normocephalic Neck: supple Respiratory: clear to auscultation Cardiovascular: regular rate and rhythm Gastrointestinal: non-tender, soft Extremities: normal pulses Results Result Diagram: 06/30/16 0430 06/30/16 0430 Results 24 hrs Laboratory Tests Test 06/30/16 04:30 White Blood Count 11.5 H Red Blood Count 2.93 L Hemoglobin 9.2 L Hematocrit 26.8 L Mean Corpuscular Volume 91.5 Mean Corpuscular Hemoglobin 31.4 Mean Corpuscular Hemoglobin Concent 34.3 Red Cell Distribution Width 12.4 Platelet Count 176 Mean Platelet Volume 10.5 H Neutrophils % 73.1 Lymphocytes % 18.2 Monocytes % 7.7 Eosinophils % 0.3 Basophils % 0.2 Nucleated Red Blood Cells % 0.0 Neutrophils # 8.4 H Lymphocytes # 2.1 Monocytes # 0.9 Eosinophils # 0.0 Basophils # 0.0 Nucleated Red Blood Cells # 0.0 Sodium Level 134 L Potassium Level 3.6 Chloride Level 101 Carbon Dioxide Level 27 Anion Gap 10 Blood Urea Nitrogen 5 L Creatinine 0.63 Glucose Level 219 Calcium Level 7.3 L Medications Medications Current Medications Ondansetron HCl (Zofran Inj) 4 mg Q6H PRN IV NAUSEA AND/OR VOMITING; Start at 02:00 Levothyroxine Sodium (Synthroid) 50 mcg DAILY@06 PO Last administered on 05:51; Admin Dose 50 MCG; Start 06/27/16 at 06:00 Famotidine (Pepcid) 20 mg DAILY PO Last administered on 06/30/16 09:14; Admin Dose 20 MG; Start 06/26/16 at 12:30 Acetaminophen (Tylenol Tab) 650 mg Q4H PRN PO PAIN AND OR ELEVATED TEMP Last administered on 06/29/16 01:39; Admin Dose 650 MG; Start 06/26/16 at 15:00 Acetaminophen/ Hydrocodone Bitart 1 tab 1 tab Q4H PRN PO PAIN LEVEL 4-6 Last administered on 06/27/16 23:56; Admin Dose 1 TAB; Start 06/26/16 at 15:00 Dextrose/Sodium Chloride (D5-1/2ns) 1,000 ml @ 125 mls/hr Q8H IV Last administered on 06/30/16 04:30; Admin Dose 125 MLS/HR; Start 06/28/16 at 17:00 Acetaminophen/ Hydrocodone Bitart ([place] (5/325)) 1 tab Q4H PRN PO PAIN LEVEL 1 -3; Start 06/28/16 at 16:30 Acetaminophen/ Hydrocodone Bitart ([place] (5/325)) 2 tab Q4H PRN PO PAIN LEVEL 4 -7 Last administered on 06/30/16 09:15; Admin Dose 2 TAB; Start 06/28/16 at 16: 30 Hydromorphone HCl (Dilaudid) 1 mg Q3H PRN IV PAIN LEVEL 8-10 Last administered on 06/29/16 18:13; Admin Dose 1 MG; Start 06/28/16 at 16:30 Enoxaparin Sodium (Lovenox) 40 mg DAILY SC Last administered on 06/30/16 09:19 ; Admin Dose 40 MG; Start 06/29/16 at 09:00 FABY SORENSEN Jun 30, 2016 12:35
--- NOTE | 2016-06-30 18:27 | PN ---
DATE: 06/30/2016 Second postop day. Afebrile. H and H are 9.2/26.8. Postop x-ray shows excellent position of the f emoral component. No signs of neurovascular compromise. Slow progress with PT. Dictated By: VAISHNAVI EUGENE/SHAWN Conf#: [id number] DID#: [id number]
[2016-06-30 19:00] VITALS: BP 113/54; RESP 19
[2016-07-01] MEDS: DEXTROSE 5%-0.45% NACL 1,000 ML IV SCH ×4 (01:00→20:49)
[2016-07-01] MEDS: HYDROmorphONE 1 MG/ML SYG IV PRN ×4 (02:19→15:50)
[2016-07-01 04:56] LABS: ADD SCAN DIFF NO
[2016-07-01 05:12] LABS: BASOPHILS % 0.2 % (0.0-2.0); EOSINOPHILS # 0.1 10^3/ul (0.0-0.5); EOSINOPHILS % 1.2 % (0.0-7.0); HEMATOCRIT 24.2 % (37.0-47.0); HEMOGLOBIN 8.1 g/dl (12.0-16.0); LYMPHOCYTES # 2.6 10^3/ul (0.8-2.9); LYMPHOCYTES % 23.8 % (15.0-51.0); MEAN CORPUSCULAR HEMOGLOBIN 31.3 pg (29.0-33.0); MEAN CORPUSCULAR HGB CONC 33.5 g/dl (32.0-37.0); MEAN CORPUSCULAR VOLUME 93.4 fl (82.0-101.0); MEAN PLATELET VOLUME 10.4 fl (7.4-10.4); MONOCYTE # 0.7 10^3/ul (0.3-0.9); MONOCYTES % 6.2 % (0.0-11.0); NEUTROPHIL # 7.5 10^3/ul (1.6-7.5); NEUTROPHILS % 67.9 % (39.0-77.0); PLATELET COUNT 185 10^3/UL (140-415); RED BLOOD COUNT 2.59 10^6/ul (4.20-5.40); RED CELL DISTRIBUTION WIDTH 12.8 % (11.5-14.5)
[2016-07-01 05:37] LABS: POTASSIUM 3.8 mmol/L (3.5-5.1)
[2016-07-01 05:40] LABS: CALCIUM 7.6 mg/dl (8.4-10.2); CREATININE 0.64 mg/dl (0.44-1.00)
[2016-07-01] MEDS: LEVOTHYROXINE 50 MCG TAB PO SCH (06:16)
[2016-07-01 07:49] VITALS: BP 108/57; RESP 15
[2016-07-01] MEDS: FAMOTIDINE 20 MG TAB PO SCH (07:58)
[2016-07-01] MEDS: ENOXAPARIN 40 MG/0.4 ML SYG SC SCH (08:03)
[2016-07-01] MEDS: HYDROCODONE/APAP (5/325) TAB PO PRN ×2 (11:33→17:48)
--- NOTE | 2016-07-01 11:49 | PN ---
Date/Time of Note Date/Time of Note DATE: 07/01/16 TIME: 11:49 Assessment/Plan VTE Prophylaxis VTE Prophylaxis Intervention: other Lines/Catheters IV Catheter Type (from Nrsg): Peripheral IV Urinary Cath still in place: Yes Reason Cath still needed: skin wounds contaminated by urine Assessment/Plan Chief Complaint/Hosp Course 1. Right hip fracture. S/p hemiarthroplasty of the right by Dr Marti on 06/28. Continue continue [place] and Dilaudid as needed for pain. Follow-up surgical recommendation. 2. Hypothyroidism. Continue levothyroxine. 3. Hyperlipidemia. Continue statin. 4. Depression. Continue fluoxetine. 5. Obesity. 6. Chronic low back pain. 7. Stage I diastolic dysfunction congestive heart failure with preserved ejection fraction. Dr. Barker is following and cardiology consultation. Problems: Subjective 24 Hr Interval Summary Free Text/Dictation Patient still have pain, has been ambulating though Exam/Review of Systems Vital Signs Vitals Vital Signs Date Time Temp Pulse Resp B/P Pulse Ox O2 Delivery O2 Flow Rate FiO2 07/01/16 07:49 99.2 99 15 108/57 98 06/29/16 14:00 Room Air 06/29/16 05:10 2.0 Intake and Output 06/30/16 06/30/16 07/01/16 15:00 23:00 07:00 Intake Total 2538 ml 950 ml Output Total 1100 ml 400 ml Balance 1438 ml 550 ml Exam Constitutional: well developed Head: atraumatic, normocephalic Neck: supple Respiratory: clear to auscultation Cardiovascular: regular rate and rhythm Gastrointestinal: non-tender, soft Results Result Diagram: 07/01/16 0443 07/01/16 0443 Results 24 hrs Laboratory Tests Test 07/01/16 04:43 White Blood Count 11.0 H Red Blood Count 2.59 L Hemoglobin 8.1 L Hematocrit 24.2 L Mean Corpuscular Volume 93.4 Mean Corpuscular Hemoglobin 31.3 Mean Corpuscular Hemoglobin Concent 33.5 Red Cell Distribution Width 12.8 Platelet Count 185 Mean Platelet Volume 10.4 Neutrophils % 67.9 Lymphocytes % 23.8 Monocytes % 6.2 Eosinophils % 1.2 Basophils % 0.2 Nucleated Red Blood Cells % 0.0 Neutrophils # 7.5 Lymphocytes # 2.6 Monocytes # 0.7 Eosinophils # 0.1 Basophils # 0.0 Nucleated Red Blood Cells # 0.0 Sodium Level 137 Potassium Level 3.8 Chloride Level 102 Carbon Dioxide Level 28 Anion Gap 11 Blood Urea Nitrogen 8 Creatinine 0.64 Glucose Level 181 Calcium Level 7.6 L Medications Medications Current Medications Ondansetron HCl (Zofran Inj) 4 mg Q6H PRN IV NAUSEA AND/OR VOMITING; Start at 02:00 Levothyroxine Sodium (Synthroid) 50 mcg DAILY@06 PO Last administered on 06:16; Admin Dose 50 MCG; Start 06/27/16 at 06:00 Famotidine (Pepcid) 20 mg DAILY PO Last administered on 07/01/16 07:58; Admin Dose 20 MG; Start 06/26/16 at 12:30 Acetaminophen (Tylenol Tab) 650 mg Q4H PRN PO PAIN AND OR ELEVATED TEMP Last administered on 06/29/16 01:39; Admin Dose 650 MG; Start 06/26/16 at 15:00 Acetaminophen/ Hydrocodone Bitart 1 tab 1 tab Q4H PRN PO PAIN LEVEL 4-6 Last administered on 07/01/16 11:33; Admin Dose 1 TAB; Start 06/26/16 at 15:00 Dextrose/Sodium Chloride (D5-1/2ns) 1,000 ml @ 125 mls/hr Q8H IV Last administered on 07/01/16 11:32; Admin Dose 125 MLS/HR; Start 06/28/16 at 17:00 Acetaminophen/ Hydrocodone Bitart ([place] (5/325)) 1 tab Q4H PRN PO PAIN LEVEL 1 -3; Start 06/28/16 at 16:30 Acetaminophen/ Hydrocodone Bitart ([place] (5/325)) 2 tab Q4H PRN PO PAIN LEVEL 4 -7 Last administered on 06/30/16 22:05; Admin Dose 2 TAB; Start 06/28/16 at 16: 30 Hydromorphone HCl (Dilaudid) 1 mg Q3H PRN IV PAIN LEVEL 8-10 Last administered on 07/01/16 07:57; Admin Dose 1 MG; Start 06/28/16 at 16:30 Enoxaparin Sodium (Lovenox) 40 mg DAILY SC Last administered on 07/01/16 08:03 ; Admin Dose 40 MG; Start 06/29/16 at 09:00 FABY SORENSEN Jul 01, 2016 11:49
[2016-07-01 19:11] VITALS: BP 109/58; RESP 18
[2016-07-02] MEDS: HYDROCODONE/APAP (5/325) TAB PO PRN ×5 (00:25→20:00)
[2016-07-02] MEDS: LEVOTHYROXINE 50 MCG TAB PO SCH (05:22)
[2016-07-02 05:25] LABS: ADD SCAN DIFF NO
[2016-07-02 05:30] LABS: BASOPHILS % 0.1 % (0.0-2.0); EOSINOPHILS # 0.3 10^3/ul (0.0-0.5); EOSINOPHILS % 2.8 % (0.0-7.0); HEMATOCRIT 23.7 % (37.0-47.0); HEMOGLOBIN 7.9 g/dl (12.0-16.0); LYMPHOCYTES # 2.7 10^3/ul (0.8-2.9); LYMPHOCYTES % 28.5 % (15.0-51.0); MEAN CORPUSCULAR HEMOGLOBIN 31.2 pg (29.0-33.0); MEAN CORPUSCULAR HGB CONC 33.3 g/dl (32.0-37.0); MEAN CORPUSCULAR VOLUME 93.7 fl (82.0-101.0); MEAN PLATELET VOLUME 10.3 fl (7.4-10.4); MONOCYTE # 0.7 10^3/ul (0.3-0.9); MONOCYTES % 7.1 % (0.0-11.0); NEUTROPHIL # 5.7 10^3/ul (1.6-7.5); NEUTROPHILS % 60.9 % (39.0-77.0); PLATELET COUNT 241 10^3/UL (140-415); RED BLOOD COUNT 2.53 10^6/ul (4.20-5.40); RED CELL DISTRIBUTION WIDTH 12.9 % (11.5-14.5); WHITE BLOOD COUNT 9.3 10^3/ul (4.8-10.8)
[2016-07-02 05:43] LABS: POTASSIUM 3.4 mmol/L (3.5-5.1)
[2016-07-02 05:46] LABS: CREATININE 0.62 mg/dl (0.44-1.00)
[2016-07-02 05:47] LABS: CALCIUM 7.5 mg/dl (8.4-10.2)
[2016-07-02 07:32] VITALS: BP 100/53; RESP 18
[2016-07-02] MEDS: DEXTROSE 5%-0.45% NACL 1,000 ML IV SCH ×2 (09:00→17:00)
[2016-07-02] MEDS: FAMOTIDINE 20 MG TAB PO SCH (09:52)
[2016-07-02] MEDS: ENOXAPARIN 40 MG/0.4 ML SYG SC SCH (09:54)
--- NOTE | 2016-07-02 18:01 | PN ---
Date/Time of Note Date/Time of Note DATE: 07/02/16 TIME: 17:57 Assessment/Plan VTE Prophylaxis VTE Prophylaxis Intervention: SCD's Lines/Catheters IV Catheter Type (from Nrs): [place] Urinary Cath still in place: Yes Reason Cath still needed: urinary retention Assessment/Plan Chief Complaint/Hosp Course ASSESSMENT AND PLAN: 1. Right hip fracture. S/p hemiarthroplasty of the right by Dr Marti on 06/28. Continue continue [place] and Dilaudid as needed for pain. Follow-up surgical recommendation. 2. Hypothyroidism. Continue levothyroxine. 3. Hyperlipidemia. Continue statin. 4. Depression. Continue fluoxetine. 5. Obesity. 6. Chronic low back pain. 7. Stage I diastolic dysfunction congestive heart failure with preserved ejection fraction. Dr. Weir is following and cardiology consultation. 8. Anemia, stop IV fluids since patient tolerates p.o. diet well, CBC tomorrow. Acute rehab eval pending. Continue Lovenox for deep venous thrombosis prophylaxis and Pepcid for peptic ulcer disease prophylaxis. Further recommendations based on clinical course. Plan of care discussed with Dr. Jensen. Problems: Subjective 24 Hr Interval Summary Free Text/Dictation Pain is well controlled, patient get out of bed with physical therapy, encourage patient to get out of bed. Exam/Review of Systems Vital Signs Vitals Vital Signs Date Time Temp Pulse Resp B/P Pulse Ox O2 Delivery O2 Flow Rate FiO2 07/02/16 07:32 97.8 87 18 100/53 93 07/01/16 08:00 Nasal Cannula 2.0 Intake and Output 07/01/16 07/01/16 07/02/16 15:00 23:00 07:00 Intake Total 200 ml 1970 ml 2170 ml Output Total 600 ml 1900 ml Balance 200 ml 1370 ml 270 ml Exam PHYSICAL ASSESSMENT: GENERAL: Well-developed, obese female, currently is awake, alert. HEENT: Head is atraumatic, normocephalic. PERRLA. NECK: Supple, no cervical lymphadenopathy, no thyromegaly. CHEST: Lungs clear bilaterally. There is no rhonchi, wheezes, rales noted. CARDIOVASCULAR: Normal S1, S2. No murmurs, gallops, clicks, rubs noted. Regular rhythm and rate. ABDOMEN: Protuberant, soft, nondistended, nontender. Bowel sounds present. There is no guarding or rebound tenderness. EXTREMITIES: No edema, clubbing, cyanosis. Status post right hip hemiarthroplasty. SKIN: There is no rash, petechiae noted. NEUROLOGIC: The patient is awake, alert and oriented x3. Results Result Diagram: 07/02/16 0415 07/02/16 0415 Results 24 hrs Laboratory Tests Test 07/02/16 04:15 White Blood Count 9.3 Red Blood Count 2.53 L Hemoglobin 7.9 L Hematocrit 23.7 L Mean Corpuscular Volume 93.7 Mean Corpuscular Hemoglobin 31.2 Mean Corpuscular Hemoglobin Concent 33.3 Red Cell Distribution Width 12.9 Platelet Count 241 # Mean Platelet Volume 10.3 Neutrophils % 60.9 Lymphocytes % 28.5 Monocytes % 7.1 Eosinophils % 2.8 Basophils % 0.1 Nucleated Red Blood Cells % 0.0 Neutrophils # 5.7 Lymphocytes # 2.7 Monocytes # 0.7 Eosinophils # 0.3 Basophils # 0.0 Nucleated Red Blood Cells # 0.0 Sodium Level 138 Potassium Level 3.4 L Chloride Level 103 Carbon Dioxide Level 24 Anion Gap 14 Blood Urea Nitrogen 7 Creatinine 0.62 Glucose Level 184 Calcium Level 7.5 L Medications Medications Current Medications Ondansetron HCl (Zofran Inj) 4 mg Q6H PRN IV NAUSEA AND/OR VOMITING; Start at 02:00 Levothyroxine Sodium (Synthroid) 50 mcg DAILY@06 PO Last administered on 05:22; Admin Dose 50 MCG; Start 06/27/16 at 06:00 Famotidine (Pepcid) 20 mg DAILY PO Last administered on 07/02/16 09:52; Admin Dose 20 MG; Start 06/26/16 at 12:30 Acetaminophen (Tylenol Tab) 650 mg Q4H PRN PO PAIN AND OR ELEVATED TEMP Last administered on 06/29/16 01:39; Admin Dose 650 MG; Start 06/26/16 at 15:00 Acetaminophen/ Hydrocodone Bitart 1 tab 1 tab Q4H PRN PO PAIN LEVEL 4-6 Last administered on 07/02/16 13:56; Admin Dose 1 TAB; Start 06/26/16 at 15:00 Dextrose/Sodium Chloride (D5-1/2ns) 1,000 ml @ 125 mls/hr Q8H IV Last administered on 07/01/16 20:49; Admin Dose 125 MLS/HR; Start 06/28/16 at 17:00 Acetaminophen/ Hydrocodone Bitart ([place] (5/325)) 1 tab Q4H PRN PO PAIN LEVEL 1 -3; Start 06/28/16 at 16:30 Acetaminophen/ Hydrocodone Bitart ([place] (5/325)) 2 tab Q4H PRN PO PAIN LEVEL 4 -7 Last administered on 07/02/16 05:23; Admin Dose 2 TAB; Start 06/28/16 at 16: 30 Hydromorphone HCl (Dilaudid) 1 mg Q3H PRN IV PAIN LEVEL 8-10 Last administered on 07/01/16 15:50; Admin Dose 1 MG; Start 06/28/16 at 16:30 Enoxaparin Sodium (Lovenox) 40 mg DAILY SC Last administered on 07/02/16 09:54 ; Admin Dose 40 MG; Start 06/29/16 at 09:00 ILYA MIMS Jul 02, 2016 18:01
[2016-07-02] MEDS ORDERED: POTASSIUM CHLORIDE 20 MEQ POWDER FOR ORAL SOLN PO ONE (18:30)
[2016-07-02 19:31] VITALS: BP 114/58; RESP 20
[2016-07-03 00:05] VITALS: BP 122/58; PULSE 74; RESP 20
[2016-07-03] MEDS: HYDROCODONE/APAP (5/325) TAB PO PRN ×3 (00:37→08:19)
[2016-07-03 05:20] LABS: ADD SCAN DIFF NO
[2016-07-03 05:37] LABS: BASOPHILS % 0.3 % (0.0-2.0); EOSINOPHILS # 0.3 10^3/ul (0.0-0.5); HEMATOCRIT 25.9 % (37.0-47.0); HEMOGLOBIN 8.6 g/dl (12.0-16.0); LYMPHOCYTES # 3.4 10^3/ul (0.8-2.9); LYMPHOCYTES % 34.4 % (15.0-51.0); MEAN CORPUSCULAR HEMOGLOBIN 30.9 pg (29.0-33.0); MEAN CORPUSCULAR HGB CONC 33.2 g/dl (32.0-37.0); MEAN CORPUSCULAR VOLUME 93.2 fl (82.0-101.0); MEAN PLATELET VOLUME 10.1 fl (7.4-10.4); MONOCYTE # 0.7 10^3/ul (0.3-0.9); MONOCYTES % 7.3 % (0.0-11.0); NEUTROPHIL # 5.4 10^3/ul (1.6-7.5); NEUTROPHILS % 54.1 % (39.0-77.0); PLATELET COUNT 323 10^3/UL (140-415); RED BLOOD COUNT 2.78 10^6/ul (4.20-5.40); RED CELL DISTRIBUTION WIDTH 13.1 % (11.5-14.5)
[2016-07-03] MEDS: LEVOTHYROXINE 50 MCG TAB PO SCH (05:52)
[2016-07-03 05:56] LABS: POTASSIUM 3.6 mmol/L (3.5-5.1)
[2016-07-03 05:58] LABS: CREATININE 0.69 mg/dl (0.44-1.00)
[2016-07-03 05:59] LABS: CALCIUM 8.3 mg/dl (8.4-10.2)
[2016-07-03 07:50] VITALS: BP 113/57; RESP 18
[2016-07-03] MEDS: FAMOTIDINE 20 MG TAB PO SCH (08:12)
[2016-07-03] MEDS: ENOXAPARIN 40 MG/0.4 ML SYG SC SCH (08:18)
[2016-07-03] MEDS ORDERED: HYDR-3498 PO (15:47)
--- NOTE | 2016-07-06 05:08 | DS ---
DATE OF ADMISSION: 06/26/2016 DATE OF DISCHARGE: 07/03/2016 FINAL DIAGNOSES: 1. Right hip fracture status post hemiarthroplasty of the right hip. 2. Hypothyroidism. 3. Hyperlipidemia. 4. Depression. 5. Obesity. 6. Chronic low back pain. 7. Stage I diastolic dysfunction and congestive heart failure with preserved ejection fraction. BRIEF HISTORY: The patient is a 60-year-old [place] female. The patient sustained a mechanical fa ll and landed on her hip. The patient was brought by paramedics to [facility] a nd was diagnosed with right hip fracture. The patient was transferred to [facility] for insurance reasons. HOSPITAL COURSE: The patient was evaluated by Dr. Marti in orthopedic surgery consultation. The christian ent was also evaluated by Dr. Weir in cardiology consultation. The patient underwent a 2D echo wh ich revealed stage I diastolic dysfunction with preserved ejection fraction of 60%. The patient was cleared for surgery, and the patient underwent hemiarthroplasty on the right hip by Dr. Marti on 06/01. The patient was given Drumright and Dilaudid for pain. The patient was continued on her home m edication, Levothyroxine, fluoxetine, and Lipitor. The patient was evaluated and followed by physic al therapy and was able to get out of bed with assist and ambulate using a walker. The patient's co ndition gradually improved, and the patient was discharged home with home health PT services. CONDITION ON DISCHARGE: Hemodynamically stable. ACTIVITY: As patient tolerates. DIET: 2 g sodium, low fat, low cholesterol diet. DISCHARGE MEDICATIONS: The patient was given prescription for 1. Drumright p.r.n. for pain. The patient is to continue home medication of 2. Alprazolam. 3. Vitamin D. 4. Cyclobenzaprine. 5. Fluoxetine. 6. Levothyroxine. 7. Simvastatin. The patient is instructed to follow up with Dr. Marti in postoperative appointment in 1 to 2 weeks. I nterdisciplinary plan of care was established for this patient. Plan of care was discussed with Dr. Vargas. Dictated By: ILYA MIMS PROJECT CONTROL ANALYST for KELLEY VARGAS MD SR/NTS Conf#: [id number] DID#: [id number]
== END 2016-07-03 19:26 | disposition home health service (06) | DRG 470 ==
LOC: MS1 00:20
PROVIDERS: ADMIT Internal Medicine; ATTEND Internal Medicine
PROC: 0SRR01Z Replacement of Right Hip Joint, Femoral Surface with Metal Synthetic Substitute, Open Approach (ICD-10-PCS; principal; 2016-06-28 13:30)
DX: S72.041A Displaced fracture of base of neck of right femur, initial encounter for closed fracture (principal); I50.30 Unspecified diastolic (congestive) heart failure; F32.9 Major depressive disorder, single episode, unspecified; E03.9 Hypothyroidism, unspecified; E78.5 Hyperlipidemia, unspecified; E66.9 Obesity, unspecified; W10.9XXA Fall (on) (from) unspecified stairs and steps, initial encounter; Y92.89 Other specified places as the place of occurrence of the external cause; G89.29 Other chronic pain; M54.5 Low back pain; D64.9 Anemia, unspecified; Z68.31 Body mass index [BMI] 31.0-31.9, adult
CPT/HCPCS: 71010; 72170; 73530; 80048; 84443; 85014; 85018; 85025; 85610; 85730; 88304; 88311; 93005; 93306; 97110; 97116; 97163; 97530; J0330; J0690; J1170; J1650; J2175; J2270; J2405; J2710; J2765; J7042